=== PATIENT | male | born 1975 | race Hispanic/Latino ===

== ENCOUNTER 2017-06-23 10:41 | Observation (INO) | payer OTHER ==
[2017-06-22 17:30] LABS: BASOPHILS % (AUTO) 0.6 % (0.0-5.0); EOSINOPHILS % (AUTO) 4.9 % (0.0-8.0); HEMATOCRIT 45.3 % (42-54); LYMPHOCYTES % (AUTO) 29.7 % (21.0-51.0); MEAN CORPUSCULAR HEMOGLOBIN 27.2 pg (27.0-33.0); MEAN CORPUSCULAR HGB CONC 32.9 g/dL (32.0-36.0); MEAN CORPUSCULAR VOLUME 82.9 fL (79-99); MONOCYTES % (AUTO) 8.3 % (3.0-13.0); NEUTROPHILS % (AUTO) 56.5 % (40.0-77.0); PLATELET COUNT (AUTO) 228 K/uL (130-400); RED BLOOD CELL COUNT(AUTO) 5.46 MIL/uL (4.50-6.20); RED CELL DISTRIBUTION WIDTH 15.5 % (11.0-15.5); WHITE BLOOD COUNT (AUTO) 5.7 K/uL (4.8-10.8)
[2017-06-22 17:45] LABS: INR 0.96 (0.85-1.15); PROTHROMBIN TIME 10.1 SEC (9.6-11.6)
[2017-06-22 17:49] LABS: ALBUMIN 3.9 g/dL (3.5-5.0); BILIRUBIN,TOTAL 2.5 mg/dL (0.2-1.0); POTASSIUM 4.2 mmol/L (3.5-5.1); TOTAL PROTEIN, SERUM 8.3 g/dL (6.0-8.3)
[~2017-06-23] VITALS: Ht 172.7 cm; Wt 92.6 kg
[2017-06-23] VITALS (16 sets, daily range): BP systolic 122–166; BP diastolic 73–105
[~2017-06-23 10:41] MED LIST: SODIUM CHLORIDE 0.9% 1000ML 1,000 ML IV ONE
[2017-06-23] MEDS ORDERED: SODIUM CHLORIDE 0.9% 1000ML 1,000 ML IV ONE (11:31)
[2017-06-23] MEDS ORDERED: PROPOFOL 10 MG/ML 20ML VIAL IV ONE ×2 (13:05→13:54)
[2017-06-23] MEDS ORDERED: FENTANYL CITRATE PF 50 MCG/1 ML 2ML VIAL ONE (13:05)
[2017-06-23] MEDS ORDERED: ISOVUE-370 50ML VIAL IV ONE (13:22)
[2017-06-23] MEDS ORDERED: GLUCAGON 1MG KIT 1 MG ML ONE (13:39)
[2017-06-23] MEDS ORDERED: INDOMETHACIN 50 MG SUPP.RECT RC SCH (14:15)
[2017-06-23] MEDS: SODIUM CHLORIDE 0.9% 1000ML 1,000 ML IV SCH ×2 (14:36→19:53)
[2017-06-23] MEDS ORDERED: GUAIFENESIN-DM 200/20 MG 10 ML PO PRN (14:45)
[2017-06-23] MEDS ORDERED: LIDOCAINE HCL-MPF 1% 2ML VIAL IVP PRN (14:45)
[2017-06-23] MEDS ORDERED: ACETAMINOPHEN-CODEINE 300/30MG TAB PO PRN ×2 (14:45)
[2017-06-23] MEDS ORDERED: NITROGLYCERIN 0.4 MG SL TAB SL PRN (14:45)
[2017-06-23] MEDS ORDERED: MORPHINE SULFATE 2 MG/ML 1ML SYG IV PRN (14:45)
[2017-06-23] MEDS ORDERED: MAG HYDROX/AL HYDROX/SIMETH ES 30 ML SUSP UDCUP PO PRN (14:45)
[2017-06-23] MEDS ORDERED: POTASSIUM CHLORIDE 20MEQ/100ML 100 ML IV PRN (14:45)
[2017-06-23] MEDS ORDERED: ACETAMINOPHEN 325 MG TAB PO PRN ×2 (14:45)
[2017-06-23] MEDS ORDERED: ONDANSETRON HCL 4 MG/2 ML VIAL IV PRN (14:45)
[2017-06-23] MEDS ORDERED: MORPHINE SULFATE 4 MG/1ML SYG IV PRN (14:45)
[2017-06-23] MEDS ORDERED: HYDRALAZINE HCL 20 MG/ML VIAL IV PRN (14:45)
[2017-06-23] MEDS ORDERED: CEFTRIAXONE 1GM/D5W 50ML 50 ML IV SCH (14:45)
[2017-06-23] MEDS ORDERED: POTASSIUM CHLORIDE 20 MEQ ERTAB PO PRN (14:45)
[2017-06-23] MEDS ORDERED: LACTULOSE 20 GM/30 ML UDCUP PO PRN (14:45)
[2017-06-23] MEDS ORDERED: POTASSIUM CHLORIDE 10% ELIXIR 20 MEQ/15 ML UDCUP PO PRN (14:45)
[2017-06-23] MEDS: CEFTRIAXONE SODIUM 1 GM IVP SCH (15:00)
[2017-06-23] MEDS: WATER FOR INJECTION,STERILE 5 ML VIAL INJ SCH (15:00)
[2017-06-23] MEDS ORDERED: MORPHINE SULFATE 10 MG/ML 1ML SYG ONE (15:02)
[2017-06-23] MEDS ORDERED: KETOROLAC TROMETHAMINE 30MG/ML ONE (15:33)
[2017-06-23] MEDS ORDERED: MEPERIDINE-PF 25 MG/ML SYG ONE (15:34)
[2017-06-23] MEDS ORDERED: KETOROLAC TROMETHAMINE 30MG/ML IV SCH (17:30)
[2017-06-23] MEDS ORDERED: MEPERIDINE-PF 25 MG/ML SYG IV SCH (17:30)
[2017-06-23] MEDS: FAMOTIDINE/PF 20 MG/2 ML VIAL IV SCH (19:53)
[2017-06-24] VITALS (22 sets, daily range): BP systolic 104–126; BP diastolic 61–80
[2017-06-24 04:38] LABS: HEMATOCRIT 39.8 % (42-54); MEAN CORPUSCULAR HEMOGLOBIN 27.4 pg (27.0-33.0); MEAN CORPUSCULAR HGB CONC 33.4 g/dL (32.0-36.0); MEAN CORPUSCULAR VOLUME 81.8 fL (79-99); NUCLEATED RED BLOOD CELLS 0.1 % (0.0-0.19); PLATELET COUNT (AUTO) 198 K/uL (130-400); RED BLOOD CELL COUNT(AUTO) 4.87 MIL/uL (4.50-6.20); RED CELL DISTRIBUTION WIDTH 15.4 % (11.0-15.5); WHITE BLOOD COUNT (AUTO) 6.1 K/uL (4.8-10.8)
[2017-06-24 04:43] LABS: INR 0.96 (0.85-1.15); PARTIAL THROMBOPLASTIN TIME 26.7 SEC (26.3-35.5); PROTHROMBIN TIME 10.1 SEC (9.6-11.6)
[2017-06-24 04:50] LABS: ALBUMIN 3.2 g/dL (3.5-5.0); BILIRUBIN,TOTAL 1.8 mg/dL (0.2-1.0); POTASSIUM 4.3 mmol/L (3.5-5.1); TOTAL PROTEIN, SERUM 6.9 g/dL (6.0-8.3)
[2017-06-24 05:05] LABS: EOSINOPHILS % (MANUAL) 2 % (1-6); LYMPHOCYTES % (MANUAL) 52 % (22-44); MAN.DIFF COMMENT-IMPRESSION MANUAL DIFFERENTIAL; MONOCYTES % (MANUAL) 6 % (2-9); PLATELET MORPHOLOGY COMMENT ADEQUATE; SEGMENTED NEUTROPHILS % 40 % (40-70)
[2017-06-24] MEDS: SODIUM CHLORIDE 0.9% 1000ML 1,000 ML IV SCH (06:04)
[2017-06-24] MEDS: FAMOTIDINE/PF 20 MG/2 ML VIAL IV SCH ×2 (07:43→20:03)
[2017-06-24] MEDS ORDERED: FAMOTIDINE/PF 20 MG/2 ML VIAL IV SCH (09:00)
[2017-06-24] MEDS ORDERED: ISOVUE-370 50ML VIAL IV ONE (11:03)
[2017-06-24] MEDS ORDERED: MIDAZOLAM HCL 1 MG/ML 2ML VIAL ONE (11:14)
[2017-06-24] MEDS ORDERED: PROPOFOL 1000 MG/100 ML 100 ML IV ONE (11:15)
[2017-06-24] MEDS ORDERED: FENTANYL CITRATE PF 50 MCG/1 ML 2ML VIAL ONE (11:15)
[2017-06-24] MEDS: CEFTRIAXONE SODIUM 1 GM IVP SCH (15:42)
[2017-06-24] MEDS: WATER FOR INJECTION,STERILE 5 ML VIAL INJ SCH (15:42)
[2017-06-25] MEDS: SODIUM CHLORIDE 0.9% 1000ML 1,000 ML IV SCH ×2 (00:01→07:09)
[2017-06-25 04:10] VITALS: BP 108/66
[2017-06-25 06:12] LABS: HEMATOCRIT 40.2 % (42-54); MEAN CORPUSCULAR HEMOGLOBIN 27.3 pg (27.0-33.0); MEAN CORPUSCULAR HGB CONC 33.2 g/dL (32.0-36.0); MEAN CORPUSCULAR VOLUME 82.1 fL (79-99); PLATELET COUNT (AUTO) 190 K/uL (130-400); RED CELL DISTRIBUTION WIDTH 15.6 % (11.0-15.5); WHITE BLOOD COUNT (AUTO) 5.9 K/uL (4.8-10.8)
[2017-06-25 06:25] LABS: ALBUMIN 3.2 g/dL (3.5-5.0); BILIRUBIN,TOTAL 1.6 mg/dL (0.2-1.0); POTASSIUM 3.8 mmol/L (3.5-5.1)
[2017-06-25 07:53] VITALS: BP 119/66
[2017-06-25 08:08] LABS: EOSINOPHILS % (MANUAL) 4 % (1-6); LYMPHOCYTES % (MANUAL) 36 % (22-44); MONOCYTES % (MANUAL) 2 % (2-9); SEGMENTED NEUTROPHILS % 58 % (40-70)
[2017-06-25 08:09] LABS: PLATELET MORPHOLOGY COMMENT ADEQUATE
[2017-06-25 08:10] LABS: MAN.DIFF COMMENT-IMPRESSION MANUAL DIFFERENTIAL
[2017-06-25] MEDS: FAMOTIDINE/PF 20 MG/2 ML VIAL IV SCH (08:50)
== END 2017-06-25 10:35 | disposition home or self-care (01) ==
LOC: SUH 10:41 → DAH 10:41 → SUH 10:42 → 3AH 10:42
PROVIDERS: ADMIT Internal Medicine; ATTEND Internal Medicine
DX: K80.51 Calculus of bile duct without cholangitis or cholecystitis with obstruction (principal); R79.89 Other specified abnormal findings of blood chemistry
CPT/HCPCS: 36415 ×3; 43260; 74330 ×2; 76700; 80053 ×3; 83690; 85025 ×3; 85610 ×2; 85730; 96374; 96375; 96376 ×2; C1769 ×2; C1773; G0378 ×48; J0696; J1610; J1885; J2175; J2250; J2704 ×3; J3010 ×2; J3490 ×4; J7030 ×5; Q9967 ×2; J2270